=== PATIENT | male | born 1965 | race Caucasian/White ===

== ENCOUNTER 2017-01-03 18:49 | Emergency (ER) | payer SELFPAY ==
--- NOTE | ~2017-01-03 | CR127 ---
[facility] A Service of [facility] RADIOLOGY TEXT RESULTS PATIENT: ROSALIO LOYOLA LOCATION: SED : 63 UNIT #: [id number] AGE: [address]: DAPHNE GOLD SEX: M ORDER DR: [id number] [place] [id number] E MR#: [id number] Acc #: [id number] NAME: ROSALIO LOYOLA : 1965 SEX: M STUDY DATE/TIME: 01/03/2017 20:05 UNIT: SED ROOM: STUDY DESCRIPTION: CR Foot Complete Min 3 View Rt Attending Physician: Daphne Gold Ordering Physician: Daniel Saucedo M.D. Primary Care Physician: Primary Care Physician No MEDICAL IMAGING REPORT This report is preliminary unless electronic signature is present. 3 VIEWS RIGHT FOOT INDICATION: Right foot swelling and redness at the base of the toes; patient noticed yesterday; prior history of trauma to right foot and ankle FINDINGS Patient is noted to have soft tissue swelling overlying the plantar aspect of the foot at the level of the metatarsal heads. I do not see any definite cortical abnormality to suggest osteomyelitis although certainly MRI would be more sensitive. There is a metallic density which is seen next to the metatarsal head of the second toe. 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 It has the appearance is stable. 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 Additional degenerative change noted involving interphalangeal joints of the toes. Postsurgical changes are seen at the ankle. There is some enthesopathic change at the insertion of the Achilles tendon. Some additional degenerative changes are seen involving the tarsometatarsal compared to the great toe. IMPRESSION. Patient is noted have soft tissue swelling along the plantar aspect of the foot at the level of metatarsal heads. There is a metallic density in this area that has the appearance of a staple. 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 The possibility that this is a retained foreign body is certainly not excluded given history. [facility] A Service of [facility] RADIOLOGY TEXT RESULTS PATIENT: ROSALIO LOYOLA LOCATION: [facility] [place], [place] : 63 UNIT #: [id number] AGE: [address]: DAPHNE GOLD SEX: M ORDER DR: I do not see any definite cortical irregularity to suggest osteomyelitis at this time but certainly MRI would be much more sensitive for evaluation. Dictated by... Remedios Bethea M.D. THIS IS AN ELECTRONICALLY VERIFIED REPORT Remedios Bethea M.D. at 01/04/2017 10:56 AM RADHA/yarely TD: 01/04/2017 03:52 JOB #: [id number] MEDICAL IMAGING REPORT Page 1 of 1
[~2017-01-03 18:49] MED LIST: ALBUTEROL17 GM INH; ANAPHYLACTIC KI1 KIT IM; BACTRIM DS TABL1 TA1 PO; BACTROBAN22 GM TOP; BENADRYL PO; BENADRYL25 M1 PO; BENADRYL25 M3 PO; BENADRYL25 MG PO; CLARITIN10 MG PO; CLEOCIN PO; CLINDAGEL40 ML TOP; CLINDAMYCIN HC300 MG PO; DELTASONE20 MG PO; DIAZEPAM PO; DICYCLOMINE HCL20 MG PO; DOXYCYCLINE HY100 M1 PO; EPIPEN0.3 MG/0.1 IM; EPIPEN0.3 MG/0.3 INJ; FAMOTIDINE PO; FLEXERIL10 M1 PO; IBUPROFEN PO; KEFLEX500 MG PO; LIDOCAINE-PRILO30 GM TOP; LORTAB 5/500 TA1 TA1 PO; LORTAB 7.5-5001 TAB PO; MEDROL DOSEPAK4 MG DOB; MEDROL PO; MOTRIN600 MG PO; NEURONTIN300 MG PO; NO MEDICATIONS; PEPCID AC20 M2 PO; PEPCID AC20 MG PO; PEPCID PO; PEPCID40 MG PO; PHENERGAN PO; PHENERGAN25 M1 PO; PREDNISONE PO; PREDNISONE1 MG PO; PREDNISONE10 MG PO; PREDNISONE10 MG/DOSE PO; TESSALON200 MG PO; TRAMADOL HCL50 M1 PO; TYLENOL #3 PO; ULTRAM PO; VIBRAMYCIN100 M1 PO; VICODIN PO; VISTARIL PO; VOLTAREN75 MG PO; Z-PAK; ZANTAC PO; ZANTAC150 MG PO; ZYRTEC PO; ZYRTEC10 M2 PO; [UNRECOGNIZED DRUG - OTHER]; [UNRECOGNIZED DRUG - OTHER]
[2017-01-03 20:20] LABS: BASOPHIL% 0.3 % (0-2.5); EOSINOPHIL# 0.2 X10e3 (0-0.7); EOSINOPHIL% 2.6 % (0.0-7.0); HEMATOCRIT 42.4 % (38.0-50.0); HEMOGLOBIN 14.7 gm/dL (13.0-16.0); LYMPHOCYTE# 0.8 X10e3 (1.0-3.5); LYMPHOCYTE% 12.6 % (17.0-45.0); MEAN CELL VOLUME 85.4 FL (83-96); MEAN CORPUSCULAR HEMOGLOBIN 29.6 PG (28-34); MEAN CORPUSCULAR HGB CONC 34.7 g/dL (30-36); MEAN PLATELET VOLUME 8.2 FL (6.5-11.5); MONOCYTE# 0.7 X10e3 (0-1.0); MONOCYTE% 10.7 % (3.0-12.0); NEUTROPHIL# 4.6 X10e3 (1.5-7.1); NEUTROPHIL% 73.8 % (40-75); PLATELET COUNT 173 X10e3 (140-420); RED BLOOD COUNT 4.97 X10e (3.90-5.60); RED CELL DISTRIBUTION WIDTH 13.8 % (11.0-15.5); WHITE BLOOD COUNT 6.2 X10e3 (4.0-10.5)
[2017-01-03 20:21] LABS: DIFF IND NO
[2017-01-03 20:35] LABS: CALCIUM SERUM 9.3 mg/dL (8.4-10.2); GLOM FILT RATE Estimated 86.2 mL/min (>60); POTASSIUM 3.9 mmol/L (3.5-5.1)
[2017-01-06] MEDS ORDERED: CIPRO PO (12:00)
== END 2017-01-03 21:34 | disposition home or self-care (01) ==
LOC: SED 18:49
PROVIDERS: Physician Assistant
DX: T81.4XXA Infection following a procedure, initial encounter (principal); L08.9 Local infection of the skin and subcutaneous tissue, unspecified; R03.0 Elevated blood-pressure reading, without diagnosis of hypertension; Z88.2 Allergy status to sulfonamides
CPT/HCPCS: 36415; 73630; 80048; 85025; 87070; 87077; 87186; 87205; 96365; 99284

== ENCOUNTER 2017-04-03 15:03 | Emergency (ER) | payer SELFPAY ==
[~2017-04-03] VITALS: Ht 185.4 cm; Wt 127.0 kg
[~2017-04-03 15:03] MED LIST changes: +CIPRO PO
== END 2017-04-03 15:45 | disposition home or self-care (01) ==
LOC: SED 15:03
DX: L02.414 Cutaneous abscess of left upper limb (principal); L03.114 Cellulitis of left upper limb; Z90.49 Acquired absence of other specified parts of digestive tract; Z88.2 Allergy status to sulfonamides
CPT/HCPCS: 99283